=== PATIENT | female | born 2000 | race Caucasian/White ===

== ENCOUNTER 2018-04-19 20:19 | Emergency (ER) | payer BC ==
[~2018-04-19] VITALS: Ht 157.5 cm; Wt 49.9 kg
[2018-04-19] MEDS ORDERED: IBUPROFEN 400 MG TABLET PO ONE (20:30)
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
[2018-04-19] MEDS ORDERED: IBUPROFEN 400 MG TABLET ONE (20:34)
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
== END 2018-04-19 20:53 | disposition home or self-care (01) ==
LOC: ER 20:21
DX: S16.1XXA Strain of muscle, fascia and tendon at neck level, initial encounter (principal); S70.212A Abrasion, left hip, initial encounter; S70.211A Abrasion, right hip, initial encounter; S60.811A Abrasion of right wrist, initial encounter; V49.49XA Driver injured in collision with other motor vehicles in traffic accident, initial encounter; Y93.89 Activity, other specified; Y92.410 Unspecified street and highway as the place of occurrence of the external cause; Y99.8 Other external cause status
CPT/HCPCS: A4663